=== PATIENT | female | born 1940 | race Caucasian/White ===

== ENCOUNTER 2016-12-09 10:28 | Outpatient (CLI) | payer OTHER | END 2016-12-09 18:46 | disposition home or self-care (01) | LOC: SMA 10:28 | PROVIDERS: ATTEND Family Medicine | DX: Z12.31 Encounter for screening mammogram for malignant neoplasm of breast (principal) | CPT/HCPCS: 77067; G0202 ==

== ENCOUNTER 2018-05-14 11:07 | Outpatient (CLI) | payer OTHER | END 2018-05-14 21:14 | disposition home or self-care (01) | LOC: SMA 11:07 | PROVIDERS: ATTEND Family Medicine | DX: Z12.31 Encounter for screening mammogram for malignant neoplasm of breast (principal); R92.1 Mammographic calcification found on diagnostic imaging of breast | CPT/HCPCS: 77067 ==